=== PATIENT | male | born 1945 | race Caucasian/White ===

== ENCOUNTER → 2016-09-01 | Outpatient (CLI) | payer OTHER | END | disposition home or self-care (01) | LOC: RAD 10:19 | PROVIDERS: ATTEND Internal Medicine | DX: R05 Cough (principal); J98.6 Disorders of diaphragm | CPT/HCPCS: 71020 ==

== ENCOUNTER 2018-11-27 10:29 | Outpatient (CLI) | payer OTHER ==
[2018-11-27] MEDS ORDERED: TIOT18CA INH (10:57)
[2018-11-27] MEDS ORDERED: ALBU8.5H8 INH (10:57)
[2018-11-27] MEDS ORDERED: FINA5TAB4 PO (10:57)
[2018-11-27] MEDS ORDERED: TAMS-11 PO (10:57)
[2018-11-27] MEDS ORDERED: LEVO50TA5 PO (10:57)
[2018-11-27] MEDS ORDERED: DOCU100T3 PO (11:04)
[2018-11-27] MEDS ORDERED: LISI5TAB7 PO (11:04)
[2018-11-27 11:18] LABS: BASOPHILS # (AUTO) 0.03 x10^3/uL (0-0.1); BASOPHILS % (AUTO) 1 % (0-1); EOSINOPHILS # (AUTO) 0.13 x10^3/uL (0-0.4); EOSINOPHILS % (AUTO) 2 % (1-7); LYMPHOCYTES # (AUTO) 1.64 x10^3/uL (1-3.4); LYMPHOCYTES % (AUTO) 30 % (22-44); MD NO; MEAN CORPUSCULAR HGB CONC 32.9 g/dL (33.2-36.2); MEAN CORPUSCULAR VOLUME 97.3 fL (81-97); MEAN PLATELET VOLUME 7.6 fL (7.4-10.4); MONOCYTES # (AUTO) 0.59 x10^3/uL (0.2-0.8); MONOCYTES % (AUTO) 11 % (2-9); NEUTROPHILS % (AUTO) 56 % (42-75); PLATELET COUNT 242 x10^3/uL (130-400); RED BLOOD COUNT 4.49 x10^6/uL (4.38-5.82)
[2018-11-27 11:28] LABS: ALBUMIN 3.9 g/dL (3.4-5.0); ANION GAP 6 mmol/L (5-15); CALCIUM 8.9 mg/dL (8.5-10.1); CHLORIDE 112 mmol/L (98-107)
[2018-11-27 11:35] LABS: ALANINE AMINOTRANSFERASE 24 U/L (12-78); ALKALINE PHOSPHATASE 58 U/L (45-117); BILIRUBIN,TOTAL 0.5 mg/dL (0.2-1.0); TOTAL PROTEIN 7.4 g/dL (6.4-8.2)
== END 2018-11-27 23:59 | disposition home or self-care (01) ==
LOC: STAR 10:29
PROVIDERS: ATTEND Surgery
DX: Z01.818 Encounter for other preprocedural examination (principal); K40.90 Unilateral inguinal hernia, without obstruction or gangrene, not specified as recurrent
CPT/HCPCS: 36415; 71046; 80053; 85025; 93005

== ENCOUNTER 2018-12-05 11:23 | Day surgery (SDC) | payer OTHER ==
[~2018-12-05] VITALS: Ht 175.3 cm; Wt 89.5 kg
[~2018-12-05 11:23] MED LIST: ALBU8.5H8 INH; DOCU100T3 PO; FINA5TAB4 PO; LEVO50TA5 PO; LISI5TAB7 PO; TAMS-11 PO; TIOT18CA INH
[2018-12-05 12:04] VITALS: BP 131/73
[2018-12-05] MEDS ORDERED: LACTATED RINGERS 1,000 ML IV SCH (12:10)
[2018-12-05] MEDS ORDERED: MIDAZOLAM 1 MG/ML, 2ML ONE (12:24)
[2018-12-05] MEDS ORDERED: FENTANYL PF 250 MCG/5ML ONE (12:24)
[2018-12-05] MEDS ORDERED: GABAPENTIN 300 MG CAPSULE PO ONE (12:30)
[2018-12-05] MEDS ORDERED: SCOPOLAMINE PATCH, 1.5MG PATCH.TD72 TD ONE (12:30)
[2018-12-05] MEDS ORDERED: ACETAMINOPHEN 500 MG TABLET PO ONE (12:30)
[2018-12-05] MEDS ORDERED: BUPIVACAINE/PF 0.5% ONE (13:36)
[2018-12-05] MEDS ORDERED: PROPOFOL 10 MG/ML, 20ML ONE (13:46)
[2018-12-05] MEDS ORDERED: ROCURONIUM 10 MG/ML,10ML ONE (13:46)
[2018-12-05] MEDS ORDERED: ONDANSETRON 2MG/ML, 2ML ONE (13:46)
[2018-12-05] MEDS ORDERED: DEXAMETHASONE 4 MG/ML, 1ML ONE (13:46)
[2018-12-05] MEDS ORDERED: CEFAZOLIN 1,000 MG ONE (13:46)
[2018-12-05] MEDS ORDERED: SUCCINYLCHOLINE 20 MG/ML, 10ML ONE (13:46)
[2018-12-05] MEDS ORDERED: OXYcodone 5 MG/5 ML ORAL.SOL UDC ONE (14:53)
[2018-12-05] MEDS ORDERED: FENTANYL PF 100 MCG/2ML ONE (14:53)
[2018-12-05] MEDS ORDERED: OXYcodone 5 MG/5 ML ORAL.SOL UDC PO PRN (15:00)
[2018-12-05] MEDS ORDERED: MEPERIDINE/PF 25MG/0.5ML IVPush PRN (15:00)
[2018-12-05] MEDS ORDERED: PROMETHAZINE 25 MG/ML, 1ML IV PRN (15:00)
[2018-12-05] MEDS ORDERED: LABETALOL 5MG/ML, 20ML IV PRN (15:00)
[2018-12-05] MEDS ORDERED: FENTANYL PF 100 MCG/2ML IV PRN (15:00)
[2018-12-05] MEDS ORDERED: ONDANSETRON 2MG/ML, 2ML IVPush PRN (15:00)
[2018-12-05] MEDS ORDERED: hydrALAzine 20 MG/ML, 1ML IV PRN (15:00)
[2018-12-05] MEDS ORDERED: HYDROmorphone 1 MG/ML, 1ML INJ IV PRN (15:00)
[2018-12-05] MEDS ORDERED: KETOROLAC 30 MG/1 ML IV PRN (15:00)
[2018-12-05] MEDS ORDERED: METOCLOPRAMIDE 5 MG/ML, 2ML IV PRN (15:00)
[2018-12-05] MEDS ORDERED: ALBUTEROL SULFATE 2.5 MG/3 ML NPPB PRN (15:00)
[2018-12-05] MEDS ORDERED: KETOROLAC 30 MG/1 ML ONE (15:03)
[2018-12-07] MEDS ORDERED: ERGO500017 PO (13:40)
== END 2018-12-05 17:05 | disposition home or self-care (01) ==
LOC: OUT 11:23
PROVIDERS: ATTEND Surgery
DX: K40.90 Unilateral inguinal hernia, without obstruction or gangrene, not specified as recurrent (principal); C61 Malignant neoplasm of prostate; J44.9 Chronic obstructive pulmonary disease, unspecified; I10 Essential (primary) hypertension; Z79.82 Long term (current) use of aspirin; Z79.899 Other long term (current) drug therapy; Z87.891 Personal history of nicotine dependence; Z91.030 Bee allergy status; Z98.52 Vasectomy status; Z82.49 Family history of ischemic heart disease and other diseases of the circulatory system
CPT/HCPCS: 49650; C1781; J0330; J0690; J1100; J1885; J2250; J2405; J2704; J3010; J7120; S2900

== ENCOUNTER 2018-12-06 01:29 | Inpatient (IN) | payer MEDICARE, OTHER ==
[~2018-12-06] VITALS: Ht 175.3 cm; Wt 94.2 kg
[2018-12-07 14:53] VITALS: BP 128/76
== END 2018-12-07 16:20 | disposition home or self-care (01) | DRG 189 ==
LOC: 4EST 02:12 → DCLOUNGE 12-07 16:11
PROVIDERS: ADMIT Internal Medicine; ATTEND Internal Medicine
DX: J96.21 Acute and chronic respiratory failure with hypoxia (principal); J98.11 Atelectasis; E03.9 Hypothyroidism, unspecified; Z99.81 Dependence on supplemental oxygen; J44.9 Chronic obstructive pulmonary disease, unspecified; I10 Essential (primary) hypertension; G47.33 Obstructive sleep apnea (adult) (pediatric); E55.9 Vitamin D deficiency, unspecified; D75.89 Other specified diseases of blood and blood-forming organs; R33.8 Other retention of urine; N40.1 Benign prostatic hyperplasia with lower urinary tract symptoms; Z91.030 Bee allergy status
CPT/HCPCS: 36415; 80048; 80061; 82306; 82607; 83036; 83735; 84100; 84439; 84443; 85025; 93306; 94640; G0378; J1644; J7620